=== PATIENT | female | born 1960 | race African-American/Black ===

== ENCOUNTER 2016-09-14 17:15 | Emergency (ER) | payer OTHER ==
[~2016-09-14] VITALS: Ht 165.1 cm; Wt 92.0 kg
[~2016-09-14 17:15] MED LIST: AMLO5TAB2 PO; ATEN50TA PO; BENA20TA PO; CITA40TA4 PO; ETOD400T PO; HYDR2.5C TOPICAL
[2016-09-14 17:16] VITALS: BP 153/77; PULSE 84; RESP 15; TEMP 98.2; O2SAT 98
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
[2016-09-14] MEDS ORDERED: IBUP800T23 PO (18:24)
[2016-09-17] MEDS ORDERED: CLOB0.055 TOPICAL (16:19)
[2016-09-17] MEDS ORDERED: METR500T10 PO (16:19)
== END 2016-09-14 19:02 | disposition home or self-care (01) ==
LOC: NEPD 17:15
DX: M25.571 Pain in right ankle and joints of right foot (principal)
CPT/HCPCS: 73610; 99283; E0113